=== PATIENT | male | born 1960 | race Caucasian/White ===

== ENCOUNTER 2021-03-21 18:37 | Inpatient (IN) ==
[2021-03-22] MEDS ORDERED: D5% in Water 1,000 ML IVC PRN (08:14)
[2021-03-22] MEDS ORDERED: *HR* Dextrose 50 % in Water (Syg) 50 ML SYRINGE IVP PRN (08:14)
[2021-03-22] MEDS ORDERED: Dextrose Gel 15 GM/37.5 ML TUBE PO PRN ×2 (08:14)
[2021-03-22] MEDS: ALPRAZolam 0.5 MG TABLET PO SCH ×3 (08:17→20:24)
[2021-03-22] MEDS: *HR* Glimepiride 2 MG TABLET PO SCH ×2 (08:17→20:24)
[2021-03-22] MEDS: *HR* Metformin 500 MG TABLET PO SCH ×2 (08:17→20:24)
[2021-03-22] MEDS: *HR* SitaGLIPtin 100 MG TABLET PO SCH (08:17)
[2021-03-22] MEDS: Aspirin 81 MG TAB.CHEW GTUBE SCH (08:17)
[2021-03-22] MEDS: Insulin LISPRO 300 UNITS/3 ML VIAL SUBQ SCH ×4 (11:28→20:03)
[2021-03-22] MEDS: Famotidine 20 MG TABLET PO SCH (20:24)
[2021-03-22] MEDS ORDERED: Insulin DETEMIR 100 UNIT/ML per UNIT SUBQ SCH (21:00)
[2021-03-23] MEDS: Insulin LISPRO 300 UNITS/3 ML VIAL SUBQ SCH ×4 (07:58→20:15)
[2021-03-23] MEDS: ALPRAZolam 0.5 MG TABLET PO SCH ×3 (08:13→20:14)
[2021-03-23] MEDS: *HR* Metformin 500 MG TABLET PO SCH ×2 (08:13→20:13)
[2021-03-23] MEDS: *HR* SitaGLIPtin 100 MG TABLET PO SCH (08:13)
[2021-03-23] MEDS: Aspirin 81 MG TAB.CHEW GTUBE SCH (08:13)
[2021-03-23] MEDS: *HR* Glimepiride 2 MG TABLET PO SCH ×2 (08:13→20:13)
[2021-03-23 08:20] LABS: Basophils # 0.1 K/mcL (0.0-0.2); Basophils % 0.4 %; Eosinophils # 0.4 K/mcL (0.0-0.6); Eosinophils % 2.7 %; Hematocrit 41.1 % (37.5-50.1); Hemoglobin 13.9 g/dL (12.9-16.9); Immature Granulocytes % 0.4 % (0-4); Lymphocytes # 2.9 K/mcL (0.6-4.6); Lymphocytes % 21.9 %; Mean Corpuscular HGB Conc 33.8 g/dL (31.6-35.5); Mean Corpuscular Volume 85.8 fL (83.0-100.0); Mean Platelet Volume 11.7 fL (9.4-12.4); Monocytes # 1.5 K/mcL (0.0-1.3); Monocytes % 11.1 %; Neutrophils # 8.5 K/mcL (1.6-8.9); Platelet Count 253 K/mcL (140-400); Red Blood Count 4.79 M/mcL (4.19-5.50); Red Cell Distribution Width 12.4 % (11.5-14.5); Segmented Neutrophils % 63.5 %; White Blood Count 13.4 K/mcL (4.3-11.1)
[2021-03-23 09:04] LABS: Alanine Aminotransferase 11 Units/L (7-52); Albumin 3.1 g/dL (3.5-5.7); Albumin/Globulin Ratio 0.8 (1.1-2.2); Alkaline Phosphatase 93 Units/L (34-104); Aspartate Amino Transferase 10 Units/L (13-39); BUN/Creatinine Ratio 31 (6-26); Bilirubin,Total 0.4 mg/dL (0.3-1.0); Blood Urea Nitrogen 27 mg/dL (8-23); Carbon Dioxide 25 mEq/L (23-29); Chloride 104 mEq/L (98-107); Globulin 3.9 g/dL (2.4-3.5); Glucose 93 mg/dL (70-105); Magnesium 1.8 mg/dL (1.6-2.6); Osmolality,Calculated 293 (280-300); Potassium 3.5 mEq/L (3.5-5.1); Sodium 139 mEq/L (136-145); eGFR For African Americans > 60 (> 60); eGFR For Non-African Americans > 60 (> 60)
[2021-03-23] MEDS: Famotidine 20 MG TABLET PO SCH (20:14)
[2021-03-23] MEDS: Insulin DETEMIR 100 UNIT/ML X5UNITS SUBQ SCH (20:15)
[2021-03-24] MEDS: *HR* Metformin 500 MG TABLET PO SCH ×2 (08:31→22:08)
[2021-03-24] MEDS: Aspirin 81 MG TAB.CHEW GTUBE SCH (08:31)
[2021-03-24] MEDS: ALPRAZolam 0.5 MG TABLET PO SCH ×3 (08:31→22:07)
[2021-03-24] MEDS: *HR* Glimepiride 2 MG TABLET PO SCH ×2 (08:31→22:08)
[2021-03-24] MEDS: *HR* SitaGLIPtin 100 MG TABLET PO SCH (08:32)
[2021-03-24] MEDS: Insulin LISPRO 300 UNITS/3 ML VIAL SUBQ SCH ×4 (11:09→22:44)
[2021-03-24] MEDS: lisinopriL 5 MG TABLET PO SCH (12:18)
[2021-03-24] MEDS: Famotidine 20 MG TABLET PO SCH (22:09)
[2021-03-24] MEDS: Insulin DETEMIR 100 UNIT/ML X5UNITS SUBQ SCH (22:18)
[2021-03-25] MEDS: Insulin LISPRO 300 UNITS/3 ML VIAL SUBQ SCH ×4 (09:28→21:06)
[2021-03-25] MEDS: *HR* Glimepiride 2 MG TABLET PO SCH ×2 (09:29→21:16)
[2021-03-25] MEDS: ALPRAZolam 0.5 MG TABLET PO SCH ×3 (09:29→21:14)
[2021-03-25] MEDS: Aspirin 81 MG TAB.CHEW GTUBE SCH (09:29)
[2021-03-25] MEDS: *HR* SitaGLIPtin 100 MG TABLET PO SCH (09:29)
[2021-03-25] MEDS: *HR* Metformin 500 MG TABLET PO SCH ×2 (09:29→21:14)
[2021-03-25] MEDS: lisinopriL 5 MG TABLET PO SCH (09:29)
[2021-03-25] MEDS ORDERED: Acetaminophen 325 MG TABLET PO PRN (13:23)
[2021-03-25] MEDS: Ondansetron ODT 4 MG TAB.RAPDIS SL PRN (15:36)
[2021-03-25] MEDS: Insulin DETEMIR 100 UNIT/ML X5UNITS SUBQ SCH (21:14)
[2021-03-25] MEDS: Famotidine 20 MG TABLET PO SCH (21:15)
[2021-03-26] MEDS: Ondansetron ODT 4 MG TAB.RAPDIS SL PRN ×2 (01:37→08:24)
[2021-03-26] MEDS: Insulin LISPRO 300 UNITS/3 ML VIAL SUBQ SCH ×4 (08:18→21:06)
[2021-03-26] MEDS: lisinopriL 5 MG TABLET PO SCH (08:24)
[2021-03-26] MEDS: Aspirin 81 MG TAB.CHEW GTUBE SCH (08:24)
[2021-03-26] MEDS: *HR* Metformin 500 MG TABLET PO SCH ×2 (08:24→21:05)
[2021-03-26] MEDS: ALPRAZolam 0.5 MG TABLET PO SCH ×3 (08:24→21:05)
[2021-03-26] MEDS: *HR* SitaGLIPtin 100 MG TABLET PO SCH (08:24)
[2021-03-26] MEDS: *HR* Glimepiride 2 MG TABLET PO SCH ×2 (08:24→21:05)
[2021-03-26 18:01] LABS: Basophils # 0.1 K/mcL (0.0-0.2); Basophils % 0.5 %; Eosinophils # 0.4 K/mcL (0.0-0.6); Eosinophils % 2.8 %; Hematocrit 41.8 % (37.5-50.1); Hemoglobin 14.3 g/dL (12.9-16.9); Immature Granulocytes % 0.5 % (0-4); Mean Corpuscular HGB Conc 34.2 g/dL (31.6-35.5); Mean Corpuscular Hemoglobin 29.4 pg (28.0-33.3); Mean Corpuscular Volume 85.8 fL (83.0-100.0); Monocytes % 9.7 %; Neutrophils # 9.9 K/mcL (1.6-8.9); Platelet Count 364 K/mcL (140-400); Red Blood Count 4.87 M/mcL (4.19-5.50); Red Cell Distribution Width 12.4 % (11.5-14.5); Segmented Neutrophils % 66.5 %; White Blood Count 14.9 K/mcL (4.3-11.1)
[2021-03-26 18:14] LABS: Alanine Aminotransferase 13 Units/L (7-52); Albumin 3.4 g/dL (3.5-5.7); Albumin/Globulin Ratio 0.8 (1.1-2.2); Alkaline Phosphatase 101 Units/L (34-104); Aspartate Amino Transferase 16 Units/L (13-39); BUN/Creatinine Ratio 30 (6-26); Bilirubin,Total 0.3 mg/dL (0.3-1.0); Blood Urea Nitrogen 33 mg/dL (8-23); Calcium 9.2 mg/dL (8.6-10.3); Carbon Dioxide 27 mEq/L (23-29); Chloride 95 mEq/L (98-107); Globulin 4.4 g/dL (2.4-3.5); Glucose 107 mg/dL (70-105); Magnesium 2.1 mg/dL (1.6-2.6); Osmolality,Calculated 280 (280-300); Potassium 4.4 mEq/L (3.5-5.1); Sodium 131 mEq/L (136-145); Total Protein 7.8 g/dL (6.4-8.9); eGFR For African Americans > 60 (> 60); eGFR For Non-African Americans > 60 (> 60)
[2021-03-26 18:17] LABS: Monocytes # 1.5 K/mcL (0.0-1.3)
[2021-03-26] MEDS ORDERED: 0.9 % Sodium Chloride 1,000 ML IVC SCH (19:00)
[2021-03-26] MEDS: Famotidine 20 MG TABLET PO SCH (21:05)
[2021-03-26] MEDS: Insulin DETEMIR 100 UNIT/ML X5UNITS SUBQ SCH (21:06)
[2021-03-27] MEDS: *HR* Enoxaparin 40 MG/0.4 ML SYRINGE SQ SCH (05:57)
[2021-03-27] MEDS: Insulin LISPRO 300 UNITS/3 ML VIAL SUBQ SCH ×4 (07:47→21:37)
[2021-03-27] MEDS: *HR* SitaGLIPtin 100 MG TABLET PO SCH (09:04)
[2021-03-27] MEDS: *HR* Glimepiride 2 MG TABLET PO SCH (09:04)
[2021-03-27] MEDS: ALPRAZolam 0.5 MG TABLET PO SCH ×3 (09:09→21:35)
[2021-03-27] MEDS: *HR* Metformin 500 MG TABLET PO SCH ×2 (09:09→21:35)
[2021-03-27] MEDS: lisinopriL 5 MG TABLET PO SCH (09:09)
[2021-03-27] MEDS: Aspirin 81 MG TAB.CHEW GTUBE SCH (09:09)
[2021-03-27 09:17] LABS: Basophils # 0.1 K/mcL (0.0-0.2); Basophils % 0.5 %; Eosinophils # 0.4 K/mcL (0.0-0.6); Eosinophils % 3.1 %; Hematocrit 37.9 % (37.5-50.1); Immature Granulocytes % 0.4 % (0-4); Lymphocytes # 2.8 K/mcL (0.6-4.6); Lymphocytes % 21.6 %; Mean Corpuscular HGB Conc 34.3 g/dL (31.6-35.5); Mean Corpuscular Hemoglobin 29.3 pg (28.0-33.3); Mean Corpuscular Volume 85.6 fL (83.0-100.0); Mean Platelet Volume 10.8 fL (9.4-12.4); Monocytes # 1.3 K/mcL (0.0-1.3); Monocytes % 9.6 %; Neutrophils # 8.5 K/mcL (1.6-8.9); Platelet Count 316 K/mcL (140-400); Red Blood Count 4.43 M/mcL (4.19-5.50); Red Cell Distribution Width 12.3 % (11.5-14.5); Segmented Neutrophils % 64.8 %; White Blood Count 13.1 K/mcL (4.3-11.1)
[2021-03-27 09:36] LABS: BUN/Creatinine Ratio 31 (6-26); Blood Urea Nitrogen 29 mg/dL (8-23); Calcium 8.5 mg/dL (8.6-10.3); Carbon Dioxide 28 mEq/L (23-29); Chloride 101 mEq/L (98-107); Glucose 102 mg/dL (70-105); Osmolality,Calculated 284 (280-300); Potassium 4.1 mEq/L (3.5-5.1); Sodium 134 mEq/L (136-145); eGFR For African Americans > 60 (> 60); eGFR For Non-African Americans > 60 (> 60)
[2021-03-27] MEDS: Ondansetron ODT 4 MG TAB.RAPDIS SL PRN (16:12)
[2021-03-27] MEDS: Insulin DETEMIR 100 UNIT/ML X5UNITS SUBQ SCH (21:35)
[2021-03-27] MEDS: Famotidine 20 MG TABLET PO SCH (21:35)
[2021-03-28] MEDS: *HR* Enoxaparin 40 MG/0.4 ML SYRINGE SQ SCH (04:59)
[2021-03-28] MEDS: Insulin LISPRO 300 UNITS/3 ML VIAL SUBQ SCH ×3 (07:32→17:05)
[2021-03-28] MEDS: lisinopriL 5 MG TABLET PO SCH (08:44)
[2021-03-28] MEDS: *HR* Metformin 500 MG TABLET PO SCH ×2 (08:44→21:04)
[2021-03-28] MEDS: Aspirin 81 MG TAB.CHEW GTUBE SCH (08:44)
[2021-03-28] MEDS: ALPRAZolam 0.5 MG TABLET PO SCH ×3 (08:45→21:01)
[2021-03-28] MEDS: Insulin DETEMIR 100 UNIT/ML X5UNITS SUBQ SCH (20:53)
[2021-03-28] MEDS: Famotidine 20 MG TABLET PO SCH (21:00)
[2021-03-29] MEDS: *HR* Enoxaparin 40 MG/0.4 ML SYRINGE SQ SCH (05:28)
[2021-03-29] MEDS: *HR* Metformin 500 MG TABLET PO SCH ×2 (09:01→20:48)
[2021-03-29] MEDS: Insulin DETEMIR 100 UNIT/ML X5UNITS SUBQ SCH ×2 (09:01→20:48)
[2021-03-29] MEDS: Aspirin 81 MG TAB.CHEW GTUBE SCH (09:01)
[2021-03-29] MEDS: Insulin LISPRO 300 UNITS/3 ML VIAL SUBQ SCH ×3 (09:01→17:02)
[2021-03-29] MEDS: ALPRAZolam 0.5 MG TABLET PO SCH ×3 (09:02→20:48)
[2021-03-29] MEDS: lisinopriL 5 MG TABLET PO SCH (09:02)
[2021-03-29] MEDS ORDERED: GADOBUTROL INTRAART ONE (13:47)
[2021-03-29] MEDS ORDERED: SODIUM CHLORIDE 0.9% INTRAART ONE (13:47)
[2021-03-29] MEDS ORDERED: IOPAMIDOL INTRAART ONE (13:47)
[2021-03-29] MEDS ORDERED: E-Z-HD (BARIUM SULF) SUSPENSION PO ONE (13:57)
[2021-03-29] MEDS ORDERED: E-Z-PAQUE (BARIUM SULF) SUSP 1 BOTTLE PO ONE (13:57)
[2021-03-29] MEDS: Famotidine 20 MG TABLET PO SCH (20:48)
[2021-03-30] MEDS: *HR* Enoxaparin 40 MG/0.4 ML SYRINGE SQ SCH (05:58)
[2021-03-30] MEDS: Insulin LISPRO 300 UNITS/3 ML VIAL SUBQ SCH ×3 (08:52→16:51)
[2021-03-30] MEDS: Aspirin 81 MG TAB.CHEW GTUBE SCH (08:53)
[2021-03-30] MEDS: *HR* Metformin 500 MG TABLET PO SCH ×2 (08:53→22:59)
[2021-03-30] MEDS: lisinopriL 5 MG TABLET PO SCH (08:53)
[2021-03-30] MEDS: ALPRAZolam 0.5 MG TABLET PO SCH ×3 (08:53→23:00)
[2021-03-30] MEDS: Insulin DETEMIR 100 UNIT/ML X5UNITS SUBQ SCH ×2 (10:10→22:59)
[2021-03-30] MEDS: Famotidine 20 MG TABLET PO SCH (22:59)
[2021-03-31] MEDS: *HR* Enoxaparin 40 MG/0.4 ML SYRINGE SQ SCH (06:23)
[2021-03-31] MEDS: Aspirin 81 MG TAB.CHEW GTUBE SCH (08:45)
[2021-03-31] MEDS: ALPRAZolam 0.5 MG TABLET GTUBE SCH ×3 (08:45→21:42)
[2021-03-31] MEDS: lisinopriL 5 MG TABLET GTUBE SCH (08:46)
[2021-03-31] MEDS: *HR* Metformin 500 MG TABLET GTUBE SCH ×2 (08:46→21:43)
[2021-03-31] MEDS: Insulin LISPRO 300 UNITS/3 ML VIAL SUBQ SCH ×3 (08:49→16:25)
[2021-03-31] MEDS: Insulin DETEMIR 100 UNIT/ML X5UNITS SUBQ SCH ×2 (08:52→21:44)
[2021-03-31] MEDS: Sennosides/Docusate Sodium TABLET PO SCH ×2 (12:42→21:42)
[2021-03-31] MEDS: Famotidine 20 MG TABLET GTUBE SCH (21:42)
[2021-04-01] MEDS: *HR* Enoxaparin 40 MG/0.4 ML SYRINGE SQ SCH (05:18)
[2021-04-01 07:35] LABS: Hematocrit 39.4 % (37.5-50.1); Hemoglobin 13.6 g/dL (12.9-16.9); Mean Corpuscular HGB Conc 34.5 g/dL (31.6-35.5); Mean Corpuscular Hemoglobin 29.2 pg (28.0-33.3); Mean Corpuscular Volume 84.7 fL (83.0-100.0); Mean Platelet Volume 10.3 fL (9.4-12.4); Platelet Count 358 K/mcL (140-400); Red Blood Count 4.65 M/mcL (4.19-5.50); White Blood Count 10.7 K/mcL (4.3-11.1)
[2021-04-01 07:57] LABS: BUN/Creatinine Ratio 32 (6-26); Blood Urea Nitrogen 27 mg/dL (8-23); Calcium 8.9 mg/dL (8.6-10.3); Carbon Dioxide 27 mEq/L (23-29); Chloride 101 mEq/L (98-107); Glucose 139 mg/dL (70-105); Osmolality,Calculated 289 (280-300); Potassium 4.1 mEq/L (3.5-5.1); Sodium 136 mEq/L (136-145); eGFR For African Americans > 60 (> 60); eGFR For Non-African Americans > 60 (> 60)
[2021-04-01] MEDS: Aspirin 81 MG TAB.CHEW GTUBE SCH (09:03)
[2021-04-01] MEDS: Sennosides/Docusate Sodium TABLET PO SCH ×2 (09:04→20:56)
[2021-04-01] MEDS: lisinopriL 5 MG TABLET GTUBE SCH (09:04)
[2021-04-01] MEDS: *HR* Metformin 500 MG TABLET GTUBE SCH ×2 (09:04→20:55)
[2021-04-01] MEDS: ALPRAZolam 0.5 MG TABLET GTUBE SCH ×3 (09:05→20:55)
[2021-04-01] MEDS: Insulin DETEMIR 100 UNIT/ML X5UNITS SUBQ SCH ×2 (09:07→21:02)
[2021-04-01] MEDS: Famotidine 20 MG TABLET GTUBE SCH (20:56)
[2021-04-01] MEDS: Ondansetron ODT 4 MG TAB.RAPDIS SL PRN (23:12)
[2021-04-02] MEDS: *HR* Enoxaparin 40 MG/0.4 ML SYRINGE SQ SCH (05:30)
[2021-04-02] MEDS: Aspirin 81 MG TAB.CHEW GTUBE SCH (08:24)
[2021-04-02] MEDS: ALPRAZolam 0.5 MG TABLET GTUBE SCH ×3 (08:24→21:07)
[2021-04-02] MEDS: Sennosides/Docusate Sodium TABLET PO SCH ×2 (08:25→21:07)
[2021-04-02] MEDS: lisinopriL 5 MG TABLET GTUBE SCH (08:26)
[2021-04-02] MEDS: *HR* Metformin 500 MG TABLET GTUBE SCH ×2 (08:26→21:06)
[2021-04-02] MEDS: Insulin DETEMIR 100 UNIT/ML X5UNITS SUBQ SCH ×2 (09:01→21:06)
[2021-04-02] MEDS: Insulin LISPRO 300 UNITS/3 ML VIAL SUBQ SCH ×2 (13:25→18:04)
[2021-04-02] MEDS: Famotidine 20 MG TABLET GTUBE SCH (21:07)
[2021-04-03] MEDS: Insulin LISPRO 300 UNITS/3 ML VIAL SUBQ SCH ×4 (00:04→18:52)
[2021-04-03] MEDS: *HR* Enoxaparin 40 MG/0.4 ML SYRINGE SQ SCH (05:24)
[2021-04-03] MEDS: ALPRAZolam 0.5 MG TABLET GTUBE SCH ×3 (08:13→21:59)
[2021-04-03] MEDS: Aspirin 81 MG TAB.CHEW GTUBE SCH (08:16)
[2021-04-03] MEDS: Sennosides/Docusate Sodium TABLET PO SCH ×2 (08:16→21:59)
[2021-04-03] MEDS: *HR* Metformin 500 MG TABLET GTUBE SCH ×2 (08:16→21:59)
[2021-04-03] MEDS: lisinopriL 5 MG TABLET GTUBE SCH (08:17)
[2021-04-03] MEDS: Insulin DETEMIR 100 UNIT/ML X5UNITS SUBQ SCH ×2 (08:18→22:21)
[2021-04-03] MEDS ORDERED: Insulin LISPRO 300 UNITS/3 ML VIAL SUBQ ONE (08:21)
[2021-04-03] MEDS: Famotidine 20 MG TABLET GTUBE SCH (21:59)
[2021-04-04] MEDS: Insulin LISPRO 300 UNITS/3 ML VIAL SUBQ SCH ×5 (01:15→23:32)
[2021-04-04] MEDS: *HR* Enoxaparin 40 MG/0.4 ML SYRINGE SQ SCH (06:07)
[2021-04-04] MEDS: lisinopriL 5 MG TABLET GTUBE SCH (09:22)
[2021-04-04] MEDS: ALPRAZolam 0.5 MG TABLET GTUBE SCH ×3 (09:22→20:37)
[2021-04-04] MEDS: *HR* Metformin 500 MG TABLET GTUBE SCH ×2 (09:23→20:37)
[2021-04-04] MEDS: Aspirin 81 MG TAB.CHEW GTUBE SCH (09:23)
[2021-04-04] MEDS: Insulin DETEMIR 100 UNIT/ML X5UNITS SUBQ SCH ×2 (09:24→20:38)
[2021-04-04] MEDS: Sennosides/Docusate Sodium TABLET PO SCH ×2 (09:25→20:37)
[2021-04-04] MEDS: Famotidine 20 MG TABLET GTUBE SCH (20:36)
[2021-04-05] MEDS: Insulin LISPRO 300 UNITS/3 ML VIAL SUBQ SCH ×3 (05:36→17:31)
[2021-04-05] MEDS: *HR* Enoxaparin 40 MG/0.4 ML SYRINGE SQ SCH (05:37)
[2021-04-05] MEDS: Aspirin 81 MG TAB.CHEW GTUBE SCH (08:22)
[2021-04-05] MEDS: ALPRAZolam 0.5 MG TABLET GTUBE SCH ×3 (08:22→20:36)
[2021-04-05] MEDS: Sennosides/Docusate Sodium TABLET PO SCH ×2 (08:22→20:36)
[2021-04-05] MEDS: *HR* Metformin 500 MG TABLET GTUBE SCH ×2 (08:23→20:35)
[2021-04-05] MEDS: Insulin DETEMIR 100 UNIT/ML X5UNITS SUBQ SCH ×2 (08:27→20:36)
[2021-04-05] MEDS: lisinopriL 5 MG TABLET GTUBE SCH (09:06)
[2021-04-05] MEDS: Famotidine 20 MG TABLET GTUBE SCH (20:35)
[2021-04-06] MEDS: Insulin LISPRO 300 UNITS/3 ML VIAL SUBQ SCH ×4 (00:29→18:59)
[2021-04-06] MEDS: *HR* Enoxaparin 40 MG/0.4 ML SYRINGE SQ SCH (05:29)
[2021-04-06] MEDS: *HR* Metformin 500 MG TABLET GTUBE SCH ×2 (08:02→21:08)
[2021-04-06] MEDS: Aspirin 81 MG TAB.CHEW GTUBE SCH (08:04)
[2021-04-06] MEDS: lisinopriL 5 MG TABLET GTUBE SCH (08:04)
[2021-04-06] MEDS: ALPRAZolam 0.5 MG TABLET GTUBE SCH ×3 (08:04→21:08)
[2021-04-06] MEDS: Sennosides/Docusate Sodium TABLET PO SCH ×2 (08:06→21:08)
[2021-04-06] MEDS: Insulin DETEMIR 100 UNIT/ML X5UNITS SUBQ SCH ×2 (08:09→21:09)
[2021-04-06] MEDS: Famotidine 20 MG TABLET GTUBE SCH (21:08)
[2021-04-07] MEDS: Insulin LISPRO 300 UNITS/3 ML VIAL SUBQ SCH ×4 (00:15→18:27)
[2021-04-07] MEDS: *HR* Enoxaparin 40 MG/0.4 ML SYRINGE SQ SCH (06:20)
[2021-04-07] MEDS: ALPRAZolam 0.5 MG TABLET GTUBE SCH ×3 (08:52→20:41)
[2021-04-07] MEDS: lisinopriL 5 MG TABLET GTUBE SCH (08:53)
[2021-04-07] MEDS: *HR* Metformin 500 MG TABLET GTUBE SCH ×2 (08:53→20:42)
[2021-04-07] MEDS: Sennosides/Docusate Sodium TABLET PO SCH ×2 (08:54→20:41)
[2021-04-07] MEDS: Insulin DETEMIR 100 UNIT/ML X5UNITS SUBQ SCH ×2 (08:54→20:43)
[2021-04-07] MEDS: Aspirin 81 MG TAB.CHEW GTUBE SCH (08:54)
[2021-04-07] MEDS: Famotidine 20 MG TABLET GTUBE SCH (20:43)
[2021-04-08] MEDS: Insulin LISPRO 300 UNITS/3 ML VIAL SUBQ SCH ×4 (00:26→18:19)
[2021-04-08] MEDS: *HR* Enoxaparin 40 MG/0.4 ML SYRINGE SQ SCH (05:52)
[2021-04-08] MEDS: Aspirin 81 MG TAB.CHEW GTUBE SCH (09:43)
[2021-04-08] MEDS: *HR* Metformin 500 MG TABLET GTUBE SCH ×2 (09:43→20:10)
[2021-04-08] MEDS: lisinopriL 5 MG TABLET GTUBE SCH (09:43)
[2021-04-08] MEDS: ALPRAZolam 0.5 MG TABLET GTUBE SCH ×3 (09:43→20:10)
[2021-04-08] MEDS: Insulin DETEMIR 100 UNIT/ML X5UNITS SUBQ SCH ×2 (09:43→20:10)
[2021-04-08] MEDS: Sennosides/Docusate Sodium TABLET PO SCH ×2 (09:44→20:10)
[2021-04-08] MEDS: Famotidine 20 MG TABLET GTUBE SCH (20:10)
[2021-04-08] MEDS ORDERED: Insulin DETEMIR 100 UNIT/ML X5UNITS SUBQ SCH (21:00)
[2021-04-09] MEDS: Insulin LISPRO 300 UNITS/3 ML VIAL SUBQ SCH ×4 (04:54→17:40)
[2021-04-09] MEDS: *HR* Enoxaparin 40 MG/0.4 ML SYRINGE SQ SCH (05:21)
[2021-04-09 08:15] LABS: BUN/Creatinine Ratio 28 (6-26); Blood Urea Nitrogen 25 mg/dL (8-23); Carbon Dioxide 25 mEq/L (23-29); Chloride 102 mEq/L (98-107); Glucose 132 mg/dL (70-105); Magnesium 1.5 mg/dL (1.6-2.6); Osmolality,Calculated 290 (280-300); Phosphorous 3.5 mg/dL (2.7-4.5); Potassium 4.1 mEq/L (3.5-5.1); Sodium 137 mEq/L (136-145); eGFR For African Americans > 60 (> 60); eGFR For Non-African Americans > 60 (> 60)
[2021-04-09] MEDS ORDERED: Insulin DETEMIR 100 UNIT/ML X5UNITS SUBQ SCH (09:00)
[2021-04-09] MEDS: ALPRAZolam 0.5 MG TABLET GTUBE SCH ×3 (10:15→20:34)
[2021-04-09] MEDS: Aspirin 81 MG TAB.CHEW GTUBE SCH (10:15)
[2021-04-09] MEDS: Sennosides/Docusate Sodium TABLET PO SCH ×2 (10:15→20:34)
[2021-04-09] MEDS: Insulin DETEMIR 100 UNIT/ML X5UNITS SUBQ SCH ×2 (10:16→20:34)
[2021-04-09] MEDS: lisinopriL 5 MG TABLET GTUBE SCH (10:16)
[2021-04-09] MEDS: *HR* Metformin 500 MG TABLET GTUBE SCH ×2 (10:16→20:34)
[2021-04-09] MEDS: Ondansetron ODT 4 MG TAB.RAPDIS SL PRN (13:24)
[2021-04-09] MEDS: Famotidine 20 MG TABLET GTUBE SCH (20:34)
[2021-04-10] MEDS: Insulin LISPRO 300 UNITS/3 ML VIAL SUBQ SCH ×4 (00:04→17:03)
[2021-04-10] MEDS: *HR* Enoxaparin 40 MG/0.4 ML SYRINGE SQ SCH (06:12)
[2021-04-10] MEDS: Aspirin 81 MG TAB.CHEW GTUBE SCH (09:24)
[2021-04-10] MEDS: Sennosides/Docusate Sodium TABLET PO SCH ×2 (09:24→20:31)
[2021-04-10] MEDS: lisinopriL 5 MG TABLET GTUBE SCH (09:24)
[2021-04-10] MEDS: *HR* Metformin 500 MG TABLET GTUBE SCH ×2 (09:24→20:30)
[2021-04-10] MEDS: ALPRAZolam 0.5 MG TABLET GTUBE SCH ×3 (09:24→20:30)
[2021-04-10] MEDS: Insulin DETEMIR 100 UNIT/ML X5UNITS SUBQ SCH ×2 (09:25→20:32)
[2021-04-10] MEDS: Famotidine 20 MG TABLET GTUBE SCH (20:31)
[2021-04-10] MEDS: Ondansetron ODT 4 MG TAB.RAPDIS SL PRN (22:06)
[2021-04-11] MEDS: Insulin LISPRO 300 UNITS/3 ML VIAL SUBQ SCH ×4 (00:04→18:17)
[2021-04-11] MEDS: Ondansetron ODT 4 MG TAB.RAPDIS SL PRN ×2 (06:15→17:45)
[2021-04-11] MEDS: *HR* Enoxaparin 40 MG/0.4 ML SYRINGE SQ SCH (06:15)
[2021-04-11] MEDS: *HR* Metformin 500 MG TABLET GTUBE SCH ×2 (08:39→20:27)
[2021-04-11] MEDS: Sennosides/Docusate Sodium TABLET PO SCH ×2 (08:39→20:27)
[2021-04-11] MEDS: lisinopriL 5 MG TABLET GTUBE SCH (08:39)
[2021-04-11] MEDS: ALPRAZolam 0.5 MG TABLET GTUBE SCH ×3 (08:39→20:27)
[2021-04-11] MEDS: Aspirin 81 MG TAB.CHEW GTUBE SCH (08:39)
[2021-04-11] MEDS: Insulin DETEMIR 100 UNIT/ML X5UNITS SUBQ SCH ×2 (08:40→21:07)
[2021-04-11 08:56] LABS: Basophils # 0.1 K/mcL (0.0-0.2); Basophils % 0.3 %; Eosinophils % 0.9 %; Hemoglobin 14.1 g/dL (12.9-16.9); Immature Granulocytes % 0.5 % (0-4); Lymphocytes # 1.5 K/mcL (0.6-4.6); Mean Corpuscular HGB Conc 34.4 g/dL (31.6-35.5); Mean Corpuscular Hemoglobin 29.1 pg (28.0-33.3); Mean Corpuscular Volume 84.5 fL (83.0-100.0); Mean Platelet Volume 11.1 fL (9.4-12.4); Monocytes % 5.9 %; Neutrophils # 13.6 K/mcL (1.6-8.9); Platelet Count 239 K/mcL (140-400); Red Blood Count 4.85 M/mcL (4.19-5.50); Segmented Neutrophils % 83.4 %; White Blood Count 16.3 K/mcL (4.3-11.1)
[2021-04-11 09:22] LABS: Eosinophils # 0.2 K/mcL (0.0-0.6)
[2021-04-11 09:35] LABS: BUN/Creatinine Ratio 25 (6-26); Blood Urea Nitrogen 20 mg/dL (8-23); Calcium 9.3 mg/dL (8.6-10.3); Carbon Dioxide 24 mEq/L (23-29); Chloride 100 mEq/L (98-107); Glucose 222 mg/dL (70-105); Osmolality,Calculated 291 (280-300); Potassium 4.3 mEq/L (3.5-5.1); Sodium 136 mEq/L (136-145); eGFR For African Americans > 60 (> 60); eGFR For Non-African Americans > 60 (> 60)
[2021-04-11 11:32] LABS: Bilirubin,Urine Negative (Negative); Blood,Urine Large (Negative); Clarity,Urine Cloudy (Clear); Color,Urine Yellow (Yellow); Glucose,Urine (UA) Normal (Normal); Ketones,Urine 15 mg/dL (Negative); Leukocyte Esterase,Urine Small (Negative); Nitrite,Urine Negative (Negative); Protein,Urine >=300 mg/dL (Neg-Trace); Specific Gravity,Urine 1.025 (1.010-1.025)
[2021-04-11 11:42] LABS: Bacteria,Urine Many per hpf (None-Few); RBC,Urine 30-50 per hpf (0-3); Squamous Epithelial Cell,Urine Few per hpf (None-Few); WBC,Urine 30-50 per hpf (0-3)
[2021-04-11] MEDS: levoFLOXacin 750 MG/150 ML 750 MG/150 ML BAG IVPB SCH (15:12)
[2021-04-11] MEDS: Famotidine 20 MG TABLET GTUBE SCH (20:27)
[2021-04-11] MEDS ORDERED: Metoclopramide 10 MG/2 ML VIAL IVP ONE (20:48)
[2021-04-12] MEDS: Insulin LISPRO 300 UNITS/3 ML VIAL SUBQ SCH ×4 (03:50→16:35)
[2021-04-12] MEDS: ALPRAZolam 0.5 MG TABLET GTUBE SCH ×3 (08:56→20:51)
[2021-04-12] MEDS: Aspirin 81 MG TAB.CHEW GTUBE SCH (08:56)
[2021-04-12] MEDS: Sennosides/Docusate Sodium TABLET PO SCH ×2 (08:56→20:52)
[2021-04-12] MEDS: *HR* Metformin 500 MG TABLET GTUBE SCH ×2 (08:56→20:51)
[2021-04-12] MEDS: levoFLOXacin 750 MG/150 ML 750 MG/150 ML BAG IVPB SCH (08:57)
[2021-04-12] MEDS: Insulin DETEMIR 100 UNIT/ML X5UNITS SUBQ SCH ×2 (08:58→20:52)
[2021-04-12] MEDS: lisinopriL 5 MG TABLET GTUBE SCH (09:00)
[2021-04-12] MEDS: Famotidine 20 MG TABLET GTUBE SCH (20:51)
[2021-04-13] MEDS: Insulin LISPRO 300 UNITS/3 ML VIAL SUBQ SCH ×4 (00:13→16:40)
[2021-04-13] MEDS: Ondansetron ODT 4 MG TAB.RAPDIS SL PRN (01:26)
[2021-04-13] MEDS: levoFLOXacin 750 MG/150 ML 750 MG/150 ML BAG IVPB SCH (08:17)
[2021-04-13] MEDS: *HR* Metformin 500 MG TABLET GTUBE SCH ×2 (08:18→20:35)
[2021-04-13] MEDS: Aspirin 81 MG TAB.CHEW GTUBE SCH (08:18)
[2021-04-13] MEDS: lisinopriL 5 MG TABLET GTUBE SCH (08:18)
[2021-04-13] MEDS: ALPRAZolam 0.5 MG TABLET GTUBE SCH ×3 (08:19→20:35)
[2021-04-13] MEDS: Sennosides/Docusate Sodium TABLET PO SCH ×2 (08:19→20:36)
[2021-04-13] MEDS: Insulin DETEMIR 100 UNIT/ML X5UNITS SUBQ SCH ×2 (08:37→20:36)
[2021-04-13] MEDS: Famotidine 20 MG TABLET GTUBE SCH (20:35)
[2021-04-14] MEDS: Insulin LISPRO 300 UNITS/3 ML VIAL SUBQ SCH ×5 (00:22→21:50)
[2021-04-14 08:34] LABS: Basophils # 0.1 K/mcL (0.0-0.2); Basophils % 0.4 %; Eosinophils # 0.1 K/mcL (0.0-0.6); Eosinophils % 0.8 %; Hematocrit 42.1 % (37.5-50.1); Hemoglobin 14.7 g/dL (12.9-16.9); Immature Granulocytes % 0.5 % (0-4); Lymphocytes # 2.9 K/mcL (0.6-4.6); Lymphocytes % 22.8 %; Mean Corpuscular HGB Conc 34.9 g/dL (31.6-35.5); Mean Corpuscular Hemoglobin 28.9 pg (28.0-33.3); Mean Corpuscular Volume 82.7 fL (83.0-100.0); Mean Platelet Volume 10.8 fL (9.4-12.4); Monocytes # 0.9 K/mcL (0.0-1.3); Monocytes % 7.1 %; Neutrophils # 8.6 K/mcL (1.6-8.9); Platelet Count 353 K/mcL (140-400); Red Blood Count 5.09 M/mcL (4.19-5.50); Segmented Neutrophils % 68.4 %; White Blood Count 12.5 K/mcL (4.3-11.1)
[2021-04-14] MEDS: Insulin DETEMIR 100 UNIT/ML X5UNITS SUBQ SCH ×2 (09:01→21:49)
[2021-04-14] MEDS: Aspirin 81 MG TAB.CHEW GTUBE SCH (10:15)
[2021-04-14] MEDS: ALPRAZolam 0.5 MG TABLET GTUBE SCH ×3 (10:15→21:48)
[2021-04-14] MEDS: lisinopriL 5 MG TABLET GTUBE SCH (10:16)
[2021-04-14] MEDS: levoFLOXacin 750 MG/150 ML 750 MG/150 ML BAG IVPB SCH (10:16)
[2021-04-14] MEDS: Sennosides/Docusate Sodium TABLET PO SCH ×2 (10:16→21:49)
[2021-04-14] MEDS: *HR* Metformin 500 MG TABLET GTUBE SCH ×2 (10:16→21:48)
[2021-04-14] MEDS: Famotidine 20 MG TABLET GTUBE SCH (21:49)
[2021-04-15] MEDS: Insulin LISPRO 300 UNITS/3 ML VIAL SUBQ SCH ×4 (06:49→21:35)
[2021-04-15] MEDS: *HR* Enoxaparin 40 MG/0.4 ML SYRINGE SQ SCH (07:24)
[2021-04-15] MEDS: Aspirin 81 MG TAB.CHEW GTUBE SCH (07:24)
[2021-04-15] MEDS: ALPRAZolam 0.5 MG TABLET GTUBE SCH ×3 (07:24→21:25)
[2021-04-15] MEDS: *HR* Metformin 500 MG TABLET GTUBE SCH ×2 (07:24→21:24)
[2021-04-15] MEDS: Sennosides/Docusate Sodium TABLET PO SCH ×2 (07:24→21:25)
[2021-04-15] MEDS: levoFLOXacin 750 MG TABLET PO SCH (08:47)
[2021-04-15] MEDS: Insulin DETEMIR 100 UNIT/ML X5UNITS SUBQ SCH ×2 (08:47→21:36)
[2021-04-15] MEDS: lisinopriL 5 MG TABLET GTUBE SCH (08:47)
[2021-04-15] MEDS ORDERED: lisinopriL 5 MG TABLET PO ONE (12:40)
[2021-04-15] MEDS: Famotidine 20 MG TABLET GTUBE SCH (21:24)
[2021-04-16] MEDS: *HR* Enoxaparin 40 MG/0.4 ML SYRINGE SQ SCH (06:01)
[2021-04-16] MEDS: Insulin LISPRO 300 UNITS/3 ML VIAL SUBQ SCH ×4 (08:22→21:28)
[2021-04-16] MEDS: Sennosides/Docusate Sodium TABLET PO SCH ×2 (08:51→20:24)
[2021-04-16] MEDS: Aspirin 81 MG TAB.CHEW GTUBE SCH (08:51)
[2021-04-16] MEDS: Insulin DETEMIR 100 UNIT/ML X5UNITS SUBQ SCH ×2 (08:52→20:24)
[2021-04-16] MEDS: ALPRAZolam 0.5 MG TABLET GTUBE SCH ×3 (08:52→20:23)
[2021-04-16] MEDS: lisinopriL 5 MG TABLET GTUBE SCH (08:52)
[2021-04-16] MEDS: *HR* Metformin 500 MG TABLET GTUBE SCH ×2 (08:52→20:24)
[2021-04-16] MEDS: levoFLOXacin 750 MG TABLET PO SCH (08:52)
[2021-04-16] MEDS: Ondansetron ODT 4 MG TAB.RAPDIS SL PRN (14:48)
[2021-04-16] MEDS: Famotidine 20 MG TABLET GTUBE SCH (20:24)
[2021-04-17] MEDS: *HR* Enoxaparin 40 MG/0.4 ML SYRINGE SQ SCH (06:13)
[2021-04-17] MEDS: Insulin LISPRO 300 UNITS/3 ML VIAL SUBQ SCH ×4 (08:40→21:07)
[2021-04-17] MEDS: ALPRAZolam 0.5 MG TABLET GTUBE SCH ×3 (09:08→21:10)
[2021-04-17] MEDS: *HR* Metformin 500 MG TABLET GTUBE SCH ×2 (09:08→21:07)
[2021-04-17] MEDS: levoFLOXacin 750 MG TABLET PO SCH (09:08)
[2021-04-17] MEDS: Sennosides/Docusate Sodium TABLET PO SCH ×2 (09:08→21:08)
[2021-04-17] MEDS: Aspirin 81 MG TAB.CHEW GTUBE SCH (09:08)
[2021-04-17] MEDS: lisinopriL 5 MG TABLET GTUBE SCH (09:08)
[2021-04-17] MEDS: Insulin DETEMIR 100 UNIT/ML X5UNITS SUBQ SCH ×2 (09:09→21:08)
[2021-04-17] MEDS: Famotidine 20 MG TABLET GTUBE SCH (21:10)
[2021-04-18] MEDS: *HR* Enoxaparin 40 MG/0.4 ML SYRINGE SQ SCH (05:39)
[2021-04-18] MEDS: Insulin LISPRO 300 UNITS/3 ML VIAL SUBQ SCH ×4 (07:30→19:58)
[2021-04-18] MEDS: *HR* Metformin 500 MG TABLET GTUBE SCH ×2 (07:52→19:36)
[2021-04-18] MEDS: levoFLOXacin 750 MG TABLET PO SCH (07:52)
[2021-04-18] MEDS: Aspirin 81 MG TAB.CHEW GTUBE SCH (07:52)
[2021-04-18] MEDS: ALPRAZolam 0.5 MG TABLET GTUBE SCH ×3 (07:52→19:36)
[2021-04-18] MEDS: lisinopriL 5 MG TABLET GTUBE SCH (07:53)
[2021-04-18] MEDS: Sennosides/Docusate Sodium TABLET PO SCH ×2 (07:53→19:58)
[2021-04-18] MEDS: Insulin DETEMIR 100 UNIT/ML X5UNITS SUBQ SCH ×2 (09:09→19:48)
[2021-04-18] MEDS: Famotidine 20 MG TABLET GTUBE SCH (19:37)
[2021-04-19] MEDS: *HR* Enoxaparin 40 MG/0.4 ML SYRINGE SQ SCH (05:43)
[2021-04-19] MEDS: ALPRAZolam 0.5 MG TABLET GTUBE SCH ×3 (07:43→20:01)
[2021-04-19] MEDS: Insulin LISPRO 300 UNITS/3 ML VIAL SUBQ SCH ×4 (07:43→20:04)
[2021-04-19] MEDS: Aspirin 81 MG TAB.CHEW GTUBE SCH (07:44)
[2021-04-19] MEDS: lisinopriL 5 MG TABLET GTUBE SCH (07:45)
[2021-04-19] MEDS: Sennosides/Docusate Sodium TABLET PO SCH ×2 (07:45→20:01)
[2021-04-19] MEDS: *HR* Metformin 500 MG TABLET GTUBE SCH ×2 (07:45→20:01)
[2021-04-19] MEDS: Insulin DETEMIR 100 UNIT/ML X5UNITS SUBQ SCH ×2 (10:05→20:03)
[2021-04-19] MEDS: Famotidine 20 MG TABLET GTUBE SCH (20:01)
[2021-04-20] MEDS: *HR* Enoxaparin 40 MG/0.4 ML SYRINGE SQ SCH (05:33)
[2021-04-20] MEDS: Insulin LISPRO 300 UNITS/3 ML VIAL SUBQ SCH ×4 (07:32→21:46)
[2021-04-20] MEDS: *HR* Metformin 500 MG TABLET GTUBE SCH ×2 (09:20→21:44)
[2021-04-20] MEDS: ALPRAZolam 0.5 MG TABLET GTUBE SCH ×3 (09:20→21:44)
[2021-04-20] MEDS: Aspirin 81 MG TAB.CHEW GTUBE SCH (09:20)
[2021-04-20] MEDS: lisinopriL 5 MG TABLET GTUBE SCH (09:21)
[2021-04-20] MEDS: Insulin DETEMIR 100 UNIT/ML X5UNITS SUBQ SCH ×2 (09:21→21:46)
[2021-04-20] MEDS: Sennosides/Docusate Sodium TABLET PO SCH ×2 (09:21→21:45)
[2021-04-20] MEDS: Famotidine 20 MG TABLET GTUBE SCH (21:44)
[2021-04-21] MEDS: *HR* Enoxaparin 40 MG/0.4 ML SYRINGE SQ SCH (05:36)
[2021-04-21] MEDS: Insulin LISPRO 300 UNITS/3 ML VIAL SUBQ SCH ×4 (07:17→20:08)
[2021-04-21] MEDS: *HR* Metformin 500 MG TABLET GTUBE SCH ×2 (09:15→19:55)
[2021-04-21] MEDS: ALPRAZolam 0.5 MG TABLET GTUBE SCH ×3 (09:15→19:54)
[2021-04-21] MEDS: Insulin DETEMIR 100 UNIT/ML X5UNITS SUBQ SCH ×2 (09:16→20:09)
[2021-04-21] MEDS: Sennosides/Docusate Sodium TABLET PO SCH ×2 (09:16→19:55)
[2021-04-21] MEDS: Aspirin 81 MG TAB.CHEW GTUBE SCH (09:16)
[2021-04-21] MEDS: lisinopriL 5 MG TABLET GTUBE SCH (09:25)
[2021-04-21] MEDS: Famotidine 20 MG TABLET GTUBE SCH (19:55)
[2021-04-22] MEDS: *HR* Enoxaparin 40 MG/0.4 ML SYRINGE SQ SCH (05:30)
[2021-04-22] MEDS: Insulin LISPRO 300 UNITS/3 ML VIAL SUBQ SCH ×4 (07:30→23:29)
[2021-04-22] MEDS: Sennosides/Docusate Sodium TABLET PO SCH ×2 (08:37→21:04)
[2021-04-22] MEDS: Aspirin 81 MG TAB.CHEW GTUBE SCH (08:37)
[2021-04-22] MEDS: *HR* Metformin 500 MG TABLET GTUBE SCH (08:37)
[2021-04-22] MEDS: ALPRAZolam 0.5 MG TABLET GTUBE SCH (08:37)
[2021-04-22] MEDS: lisinopriL 5 MG TABLET GTUBE SCH (08:38)
[2021-04-22] MEDS: Insulin DETEMIR 100 UNIT/ML X5UNITS SUBQ SCH ×2 (08:49→21:10)
[2021-04-22] MEDS: ALPRAZolam 0.5 MG TABLET PO SCH ×2 (14:40→21:00)
[2021-04-22] MEDS: Famotidine 20 MG TABLET PO SCH (21:03)
[2021-04-22] MEDS: *HR* Metformin 500 MG TABLET PO SCH (21:04)
[2021-04-23] MEDS: *HR* Enoxaparin 40 MG/0.4 ML SYRINGE SQ SCH (06:17)
[2021-04-23] MEDS: Insulin LISPRO 300 UNITS/3 ML VIAL SUBQ SCH ×4 (09:02→21:08)
[2021-04-23] MEDS: Insulin DETEMIR 100 UNIT/ML X5UNITS SUBQ SCH ×2 (09:02→21:15)
[2021-04-23] MEDS: Aspirin 81 MG TAB.CHEW PO SCH (09:03)
[2021-04-23] MEDS: ALPRAZolam 0.5 MG TABLET PO SCH ×3 (09:03→21:07)
[2021-04-23] MEDS: Sennosides/Docusate Sodium TABLET PO SCH ×2 (09:04→21:08)
[2021-04-23] MEDS: lisinopriL 5 MG TABLET PO SCH (09:04)
[2021-04-23] MEDS: *HR* Metformin 500 MG TABLET PO SCH ×2 (09:05→21:06)
[2021-04-23] MEDS: Famotidine 20 MG TABLET PO SCH (21:07)
[2021-04-24] MEDS: *HR* Enoxaparin 40 MG/0.4 ML SYRINGE SQ SCH (05:17)
[2021-04-24] MEDS: Aspirin 81 MG TAB.CHEW PO SCH (09:33)
[2021-04-24] MEDS: *HR* Metformin 500 MG TABLET PO SCH ×2 (09:33→20:48)
[2021-04-24] MEDS: Insulin DETEMIR 100 UNIT/ML X5UNITS SUBQ SCH ×2 (09:33→20:49)
[2021-04-24] MEDS: lisinopriL 5 MG TABLET PO SCH (09:34)
[2021-04-24] MEDS: Sennosides/Docusate Sodium TABLET PO SCH ×2 (09:34→20:48)
[2021-04-24] MEDS: ALPRAZolam 0.5 MG TABLET PO SCH ×3 (09:34→20:48)
[2021-04-24] MEDS: Insulin LISPRO 300 UNITS/3 ML VIAL SUBQ SCH ×4 (09:41→20:49)
[2021-04-24] MEDS: Famotidine 20 MG TABLET PO SCH (20:48)
[2021-04-25] MEDS: *HR* Enoxaparin 40 MG/0.4 ML SYRINGE SQ SCH (05:35)
[2021-04-25] MEDS: Insulin LISPRO 300 UNITS/3 ML VIAL SUBQ SCH ×4 (07:49→19:48)
[2021-04-25] MEDS: *HR* Metformin 500 MG TABLET PO SCH ×2 (09:57→19:47)
[2021-04-25] MEDS: Aspirin 81 MG TAB.CHEW PO SCH (09:57)
[2021-04-25] MEDS: Insulin DETEMIR 100 UNIT/ML X5UNITS SUBQ SCH ×2 (09:57→19:48)
[2021-04-25] MEDS: ALPRAZolam 0.5 MG TABLET PO SCH ×3 (09:58→19:47)
[2021-04-25] MEDS: lisinopriL 5 MG TABLET PO SCH (09:58)
[2021-04-25] MEDS: Sennosides/Docusate Sodium TABLET PO SCH ×2 (09:59→19:47)
[2021-04-25] MEDS: Famotidine 20 MG TABLET PO SCH (19:47)
[2021-04-26] MEDS: *HR* Enoxaparin 40 MG/0.4 ML SYRINGE SQ SCH (06:24)
[2021-04-26] MEDS: lisinopriL 5 MG TABLET PO SCH (08:15)
[2021-04-26] MEDS: ALPRAZolam 0.5 MG TABLET PO SCH ×3 (08:15→21:21)
[2021-04-26] MEDS: Sennosides/Docusate Sodium TABLET PO SCH ×2 (08:15→21:21)
[2021-04-26] MEDS: *HR* Metformin 500 MG TABLET PO SCH ×2 (08:15→21:21)
[2021-04-26] MEDS: Aspirin 81 MG TAB.CHEW PO SCH (08:15)
[2021-04-26] MEDS: Insulin LISPRO 300 UNITS/3 ML VIAL SUBQ SCH ×4 (08:16→21:22)
[2021-04-26] MEDS: Insulin DETEMIR 100 UNIT/ML X5UNITS SUBQ SCH ×2 (08:53→21:22)
[2021-04-26] MEDS: Famotidine 20 MG TABLET PO SCH (21:22)
[2021-04-27] MEDS: *HR* Enoxaparin 40 MG/0.4 ML SYRINGE SQ SCH ×2 (05:32→05:41)
[2021-04-27] MEDS: Insulin LISPRO 300 UNITS/3 ML VIAL SUBQ SCH ×4 (07:28→20:45)
[2021-04-27] MEDS: ALPRAZolam 0.5 MG TABLET PO SCH ×3 (09:17→20:49)
[2021-04-27] MEDS: Aspirin 81 MG TAB.CHEW PO SCH (09:17)
[2021-04-27] MEDS: *HR* Metformin 500 MG TABLET PO SCH ×2 (09:17→20:49)
[2021-04-27] MEDS: Sennosides/Docusate Sodium TABLET PO SCH ×2 (09:18→20:49)
[2021-04-27] MEDS: lisinopriL 5 MG TABLET PO SCH (09:18)
[2021-04-27] MEDS: Insulin DETEMIR 100 UNIT/ML X5UNITS SUBQ SCH ×2 (09:18→20:49)
[2021-04-27] MEDS: Famotidine 20 MG TABLET PO SCH (20:49)
[2021-04-28] MEDS: *HR* Enoxaparin 40 MG/0.4 ML SYRINGE SQ SCH (06:29)
[2021-04-28] MEDS: Sennosides/Docusate Sodium TABLET PO SCH ×2 (07:44→21:28)
[2021-04-28] MEDS: *HR* Metformin 500 MG TABLET PO SCH ×2 (07:44→21:28)
[2021-04-28] MEDS: Aspirin 81 MG TAB.CHEW PO SCH (07:44)
[2021-04-28] MEDS: lisinopriL 5 MG TABLET PO SCH (07:44)
[2021-04-28] MEDS: ALPRAZolam 0.5 MG TABLET PO SCH ×3 (07:44→21:28)
[2021-04-28] MEDS: Insulin LISPRO 300 UNITS/3 ML VIAL SUBQ SCH ×4 (07:53→21:29)
[2021-04-28] MEDS: Insulin DETEMIR 100 UNIT/ML X5UNITS SUBQ SCH ×2 (08:14→21:29)
[2021-04-28] MEDS: Famotidine 20 MG TABLET PO SCH (21:28)
[2021-04-29] MEDS: *HR* Enoxaparin 40 MG/0.4 ML SYRINGE SQ SCH (05:35)
[2021-04-29] MEDS: lisinopriL 5 MG TABLET PO SCH (07:51)
[2021-04-29] MEDS: ALPRAZolam 0.5 MG TABLET PO SCH ×3 (07:52→20:31)
[2021-04-29] MEDS: Aspirin 81 MG TAB.CHEW PO SCH (07:52)
[2021-04-29] MEDS: Sennosides/Docusate Sodium TABLET PO SCH ×2 (07:53→20:30)
[2021-04-29] MEDS: *HR* Metformin 500 MG TABLET PO SCH ×2 (07:55→20:31)
[2021-04-29] MEDS: Insulin LISPRO 300 UNITS/3 ML VIAL SUBQ SCH ×4 (07:58→20:31)
[2021-04-29] MEDS: Insulin DETEMIR 100 UNIT/ML X5UNITS SUBQ SCH ×2 (08:46→20:31)
[2021-04-29] MEDS: Ondansetron ODT 4 MG TAB.RAPDIS SL PRN (12:57)
[2021-04-29] MEDS: Famotidine 20 MG TABLET PO SCH (20:31)
[2021-04-30] MEDS: *HR* Enoxaparin 40 MG/0.4 ML SYRINGE SQ SCH (05:36)
[2021-04-30] MEDS: *HR* Metformin 500 MG TABLET PO SCH ×2 (08:51→20:49)
[2021-04-30] MEDS: Aspirin 81 MG TAB.CHEW PO SCH (08:51)
[2021-04-30] MEDS: lisinopriL 5 MG TABLET PO SCH (08:52)
[2021-04-30] MEDS: Sennosides/Docusate Sodium TABLET PO SCH ×2 (08:53→19:21)
[2021-04-30] MEDS: ALPRAZolam 0.5 MG TABLET PO SCH ×3 (08:54→20:49)
[2021-04-30] MEDS: Insulin LISPRO 300 UNITS/3 ML VIAL SUBQ SCH ×4 (08:56→20:50)
[2021-04-30] MEDS: Insulin DETEMIR 100 UNIT/ML X5UNITS SUBQ SCH ×2 (08:59→20:48)
[2021-04-30] MEDS: Famotidine 20 MG TABLET PO SCH (20:48)
[2021-05-01] MEDS: *HR* Enoxaparin 40 MG/0.4 ML SYRINGE SQ SCH (05:31)
[2021-05-01] MEDS: Insulin LISPRO 300 UNITS/3 ML VIAL SUBQ SCH ×4 (08:07→20:22)
[2021-05-01] MEDS: ALPRAZolam 0.5 MG TABLET PO SCH ×3 (08:11→20:20)
[2021-05-01] MEDS: *HR* Metformin 500 MG TABLET PO SCH ×2 (08:11→20:21)
[2021-05-01] MEDS: Sennosides/Docusate Sodium TABLET PO SCH ×2 (08:11→20:20)
[2021-05-01] MEDS: lisinopriL 5 MG TABLET PO SCH (08:12)
[2021-05-01] MEDS: Aspirin 81 MG TAB.CHEW PO SCH (08:12)
[2021-05-01] MEDS: Insulin DETEMIR 100 UNIT/ML X5UNITS SUBQ SCH ×2 (09:47→20:22)
[2021-05-01] MEDS: Famotidine 20 MG TABLET PO SCH (20:21)
[2021-05-02] MEDS: *HR* Enoxaparin 40 MG/0.4 ML SYRINGE SQ SCH (05:02)
[2021-05-02] MEDS: Insulin LISPRO 300 UNITS/3 ML VIAL SUBQ SCH ×4 (07:29→20:52)
[2021-05-02] MEDS: ALPRAZolam 0.5 MG TABLET PO SCH ×3 (09:07→20:51)
[2021-05-02] MEDS: *HR* Metformin 500 MG TABLET PO SCH ×2 (09:07→20:51)
[2021-05-02] MEDS: lisinopriL 5 MG TABLET PO SCH (09:07)
[2021-05-02] MEDS: Sennosides/Docusate Sodium TABLET PO SCH ×2 (09:08→20:51)
[2021-05-02] MEDS: Aspirin 81 MG TAB.CHEW PO SCH (09:08)
[2021-05-02] MEDS: Insulin DETEMIR 100 UNIT/ML X5UNITS SUBQ SCH ×2 (09:08→20:52)
[2021-05-02] MEDS: Famotidine 20 MG TABLET PO SCH (20:51)
[2021-05-02 21:28] LABS: Influenza A PCR Negative (Negative); Influenza B PCR Negative (Negative); Resp. Syncytial Virus PCR Negative (Negative)
[2021-05-02 21:42] LABS: SARS-CoV-2 by PCR (In House) Negative (Negative)
[2021-05-03] MEDS: *HR* Enoxaparin 40 MG/0.4 ML SYRINGE SQ SCH (05:42)
[2021-05-03] MEDS: Insulin LISPRO 300 UNITS/3 ML VIAL SUBQ SCH ×4 (07:31→20:18)
[2021-05-03] MEDS: Aspirin 81 MG TAB.CHEW PO SCH (09:20)
[2021-05-03] MEDS: *HR* Metformin 500 MG TABLET PO SCH ×2 (09:20→20:19)
[2021-05-03] MEDS: ALPRAZolam 0.5 MG TABLET PO SCH ×3 (09:20→20:19)
[2021-05-03] MEDS: lisinopriL 5 MG TABLET PO SCH (09:21)
[2021-05-03] MEDS: Sennosides/Docusate Sodium TABLET PO SCH ×2 (09:21→20:19)
[2021-05-03] MEDS: Insulin DETEMIR 100 UNIT/ML X5UNITS SUBQ SCH ×2 (09:21→20:18)
[2021-05-03 18:27] VITALS: PULSE 94; TEMP 97.4
[2021-05-03] MEDS: Famotidine 20 MG TABLET PO SCH (20:19)
[2021-05-04] MEDS: *HR* Enoxaparin 40 MG/0.4 ML SYRINGE SQ SCH (05:47)
[2021-05-04 06:39] VITALS: BP 134/84; RESP 18; O2SAT 94
[2021-05-04] MEDS: Insulin LISPRO 300 UNITS/3 ML VIAL SUBQ SCH (07:27)
[2021-05-04] MEDS: Sennosides/Docusate Sodium TABLET PO SCH (07:53)
[2021-05-04] MEDS: lisinopriL 5 MG TABLET PO SCH (07:53)
[2021-05-04] MEDS: ALPRAZolam 0.5 MG TABLET PO SCH (07:53)
[2021-05-04] MEDS: Aspirin 81 MG TAB.CHEW PO SCH (07:53)
[2021-05-04] MEDS: *HR* Metformin 500 MG TABLET PO SCH (07:54)
[2021-05-04] MEDS: Insulin DETEMIR 100 UNIT/ML X5UNITS SUBQ SCH (08:38)
== END 2021-05-04 10:29 ==
LOC: INPPIK 19:38
PROVIDERS: ADMIT Family Medicine; ATTEND Family Medicine